=== PATIENT | female | born 1990 | race Caucasian/White ===

== ENCOUNTER 2023-03-22 17:00 | Emergency (ER) | payer OTHER, SELFPAY ==
[2023-03-22 17:22] VITALS: BP 140/83; PULSE 90; RESP 14; TEMP 36.6; O2SAT 99; BMI 29.0
[2023-03-22 17:48] LABS: UTC Strep Screen (Rapid) Negative (Negative)
--- NOTE | 2023-03-22 18:04 | EXP.UTC ---
Discharge Plan Disposition Patient Disposition: Home, Self-Care Condition: Good Prescriptions Prescriptions: New azithromycin [Zithromax] 250 mg tablet 250 mg PO UD DOSE PK Qty: 6 0RF Rx Instructions: Take two (2) tablets today, then one (1) tablet days #2 thru #5 Referrals Follow up/Referrals: Mechelle Salas APRN [Primary Care Provider] - See instructions Activity Restrictions/Add. Instructions Additional Instructions/Restrictions: Drink plenty of fluids. Take tylenol or ibuprofen for pain or fever. Take the medications as directed. Follow up with your regular doctor. GO TO THE ER FOR ANY WORSENING SYMPTOMS Clinical Impressions Clinical Impression: Pharyngitis Instructions Patient Instructions: DI for Strep Throat Discharge ED Provider: Saad Gregory [facility] General Stated complaint: sore throat,runny nose, ears Mode of Arrival: Ambulatory Source of Information: Patient Limitations: No Limitations Time Seen by Provider: 03/22/23 18:04 HEENT Symptoms (Recalled from RN notes): Yes Resp Symptoms (Recalled from RN notes): No Skin Symptoms (Recalled from RN notes): No MS Symptoms (Recalled from RN notes): No Functional Status (Recalled from RN notes): wnl History of Present Illness Provider Complaint: pt c/o a sore throat, nasal drainage/congestion, bilateral ear aches, and itchy eyes Related Data Previous Rx's Medication Instructions Recorded azithromycin 250 mg tablet 250 mg PO UD DOSE PK #6 tabs 03/22/23 (Zithromax) Allergies Allergy/AdvReac Type Severity Reaction Status Date / Time acetaminophen Allergy Verified 03/22/23 17:39 [From Tylenol-Codeine] codeine Allergy Verified 03/22/23 17:39 [From Tylenol-Codeine] Penicillins Allergy Verified 03/22/23 17:39 Worker's Comp Is this a Worker's Comp case?: No [facility] Disclaimer: The information contained in this section may have been updated after the patient was seen, as this information can be updated by other users. Medical History Diabetes mellitus, type 2 Social History Smoking Status: Never smoker alcohol intake: never current occupational status: employed Travel in the last 8 weeks: None ROS Obtained: Yes All systems reviewed & no additional complaints except as documented Constitutional Constitutional: Reports chills and Reports fever(s) Eyes Eyes: Denies eye discharge ENT Ears, Nose, Mouth, and Throat: Reports as per HPI Cardiovascular Cardiovascular: Denies chest pain Respiratory Respiratory: Denies chest congestion and Reports cough Gastrointestinal Gastrointestingal: Reports nausea; Denies abdominal pain, constipation, cramping, diarrhea or vomiting Musculoskeletal Musculoskeletal: Denies arthralgias Integumentary/Breasts Skin/Breast: Denies rash Neurologic Neurologic: Denies paresthesias Physical Exam General General appearance: alert and in no apparent distress Head Head exam: atraumatic, normocephalic and normal inspection Eye Eye exam: Present normal appearance, PERRL and EOMI ENT ENT exam: Present mucous membranes moist and normal external ear exam Expanded ENT Exam TM/Canal exam: Bilateral TM: erythema and bulging Nose exam: Absent sinus tenderness Mouth exam: Present normal external inspection; Absent drooling Teeth exam: Present normal inspection Throat exam: Present tonsillar erythema, tonsillomegaly and tonsillar exudate Neck Neck exam: Present normal inspection, full ROM and trachea midline; Absent tenderness, meningismus or lymphadenopathy Chest Chest inspection: Present normal inspection and symmetric chest wall rise; Absent tenderness Respiratory Respiratory exam: Present normal lung sounds bilaterally; Absent respiratory distress, wheezes or stridor Cardiovascular Cardiovascular exam: Present regular rate and normal rhythm; Absent systolic murm
[2023-03-22 18:36] VITALS: BP 140/83; PULSE 90; RESP 14; TEMP 36.6
[2023-03-22 18:44] LABS: Adenovirus,PCR Not Detected (NotDetected); Bordetella Pertussis Not Detected (NotDetected); Chlamydophila Pneumoniae, PCR Not Detected (NotDetected); Coronavirus 19, PCR Not Detected (NotDetected); Coronavirus 229E Not Detected (NotDetected); Coronavirus NL63 Not Detected (NotDetected); Coronavirus OC43 Not Detected (NotDetected); Coronovirus HKU1,PCR Not Detected (NotDetected); Human Metapneumovirus Not Detected (NotDetected); Influenza A, PCR Not Detected (NotDetected); Influenza AH1, 2009 Not Detected (NotDetected); Influenza AH1, PCR Not Detected (NotDetected); Influenza AH3,PCR Not Detected (NotDetected); Influenza B, PCR Not Detected (NotDetected); Mycoplasma Pneumoniae, PCR Not Detected (NotDetected); Parainfluenza 1, PCR Not Detected (NotDetected); Parainfluenza 2, PCR Not Detected (NotDetected); Parainfluenza 3, PCR Not Detected (NotDetected); Parainfluenza 4, PCR Not Detected (NotDetected); Respiratory Syncytial Virus Not Detected (NotDetected)
[2023-03-22 22:42] LABS: Rhinovirus/Enterovirus Detected (NotDetected)
== END 2023-03-22 18:37 | disposition home or self-care (01) ==
PROVIDERS: Emergency Provider Nurse Practitioner Family; PCP Nurse Practitioner
DX: J02.9 Acute pharyngitis, unspecified (principal)
CPT/HCPCS: 87581; 87632; 87798; 87880; 99204; 99212; C9803; G0463; U0003; U0005

== ENCOUNTER 2024-07-31 00:30 | Emergency (ER) | payer OTHER, SELFPAY ==
[2024-07-31 00:32] VITALS: BP 160/96; PULSE 85; RESP 16; TEMP 36.6; O2SAT 100; BMI 30.9
[2024-07-31 00:39] VITALS: BP 160/96; PULSE 80; RESP 18; TEMP 36.6; O2SAT 98
--- NOTE | 2024-07-31 00:40 | HMH.EDGENADL ---
Discharge Plan Disposition Patient Disposition: Home, Self-Care Prescriptions Prescriptions: No Action azithromycin [Zithromax] 250 mg tablet 250 mg PO UD DOSE PK Qty: 6 0RF Rx Instructions: Take two (2) tablets today, then one (1) tablet days #2 thru #5 Referrals Follow up/Referrals: Mechelle Salas APRN [Primary Care Provider] - See instructions Clinical Impressions Clinical Impression: Malfunction of device Qualifiers: Encounter type: initial encounter Qualified Code(s): T85.698A - Other mechanical complication of other specified internal prosthetic devices, implants and grafts, initial encounter Print Language Print Language: [place] Discharge ED Provider: Tony Lauren Adult HPI General Stated complaint: R arm foreign object Time Seen by Provider: 07/31/24 00:35 History of Present Illness HPI narrative: 34-year-old female with history of diabetes presents for concern that a small portion of her Dexcom may be retained in her skin. She reports device stated it was no longer functioning and so she removed it but the small metallic portion that is inserted into the skin seemed smaller than it should. She reports it happened just prior to arrival. Denies any other symptoms. Related Data Previous Rx's ?Medication ?Instructions ?Recorded azithromycin 250 mg tablet 250 mg PO UD DOSE PK #6 tabs 03/22/23 (Zithromax) Allergies Allergy/AdvReac Type Severity Reaction Status Date / Time acetaminophen Allergy Verified 03/22/23 17:39 [From Tylenol-Codeine] codeine Allergy Verified 03/22/23 17:39 [From Tylenol-Codeine] Penicillins Allergy Verified 03/22/23 17:39 [facility] Disclaimer: The information contained in this section may have been updated after the patient was seen, as this information can be updated by other users. Medical History Diabetes mellitus, type 2 Social History (Updated 03/24/23 @ 00:19 by Saad Gregory APRN) Smoking Status: Never smoker alcohol intake: never current occupational status: employed Travel in the last 8 weeks: None ROS Obtained: Yes All systems reviewed & no additional complaints except as documented Physical Exam General General appearance: alert and in no apparent distress Head Head exam: atraumatic and normocephalic Eye Eye exam: Present normal appearance, PERRL and EOMI ENT ENT exam: Present normal oropharynx and normal external ear exam Neck Neck exam: Present normal inspection and full ROM Chest Chest inspection: Present normal inspection and symmetric chest wall rise; Absent tenderness Respiratory Respiratory exam: Present normal lung sounds bilaterally; Absent respiratory distress Cardiovascular Cardiovascular exam: Present regular rate and normal rhythm Abdominal Exam Abdominal exam: Present soft; Absent distention, tenderness or guarding Extremities Exam Extremities exam: Present normal inspection; Absent edema or joint swelling Back Exam Back exam: Present normal inspection; Absent tenderness Neurological Exam Neurological exam: Present alert and oriented X3; Absent motor sensory deficit Psychiatric Psychiatric exam: Present normal affect and normal mood Skin Skin exam: Present warm, dry and normal color Lymphatic Lymphatic Findings: no adenopathy Medical Decision Making Medical Records Medical records reviewed: Yes I reviewed the patient's medical records. Clarence Inquiry Pt receiving controlled substance: No Clarence was queried for this patient: No Vital Signs: 07/31/24 00:39 Temperature 97.8 F Temperature Source Oral Pulse Rate 80 Respiratory Rate 18 Blood Pressure 168/96 H Blood Pressure Source Automatic Cuff Oxygen Delivery Method Room Air Lab Data Lab results reviewed: Yes I reviewed the patient's lab results. Orders (Tests/Meds): ORDERS Category Date Time Status POCUS Point of Care (ER Only) Stat Exams 07/31/24 00:41 Ordered Medical Decision Narrative: 34-year-old female presents with concern for retained piece of a Dexcom sensor. History was obtained via interactive discussion with patient. On arrival, patient is [afebrile, hemodynamically stable, satting appropriately, alert, oriented x4, GCS 15], moving all extremities spontaneously. Full physical exam performed and significant for no evidence of retained foreign body on external exam. Differential includes but is not limited to retained foreign body, device malfunction. Bedside ultrasound was performed by me and shows no evidence of retained foreign body. Low concern for emergent pathology at this time. Patient discharged in stable condition with return precautions. X-ray was considered but deemed unnecessary given history and physical exam. Procedures Risk/Benefits of Procedure(s) Were Explained: Yes Limited Ultrasound Indication:: Limited soft tissue ultrasound Indication: Possible foreign body Identified structures: Location: Skin and subcutaneous structures of the right posterior upper arm Findings: Normal soft tissue ultrasound without evidence of retained foreign body Impression: Normal soft tissue ultrasound without evidence of retained foreign body Images were saved to permanent archive The study was technically adequate Soft Tissue CPT Codes: CPT Upper extremity: 51861-36 This study was performed by me, and I personally interpreted all images/videos. Critical Care Critical Care Time Critical Care Time: No
== END 2024-07-31 00:43 | disposition home or self-care (01) ==
PROVIDERS: Emergency Provider Emergency Medicine; PCP Nurse Practitioner
DX: E11.9 Type 2 diabetes mellitus without complications; Z03.823 Encounter for observation for suspected inserted (injected) foreign body ruled out
CPT/HCPCS: 99284

== ENCOUNTER 2024-11-21 12:37 | Emergency (ER) | payer SELFPAY ==
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
[2024-11-21 13:50] VITALS: BP 132/77; PULSE 91; RESP 18; TEMP 37.1; O2SAT 100; BMI 28.8
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
[2024-11-21 14:31] VITALS: BP 132/77; PULSE 91; RESP 18; TEMP 37.1; O2SAT 100
== END 2024-11-21 14:38 | disposition home or self-care (01) ==
PROVIDERS: Emergency Provider Nurse Practitioner
DX: S46.911A Strain of unspecified muscle, fascia and tendon at shoulder and upper arm level, right arm, initial encounter (principal); V87.7XXA Person injured in collision between other specified motor vehicles (traffic), initial encounter
CPT/HCPCS: 73030; 99213; G0381